=== PATIENT | male | born 1985 | race Hispanic/Latino ===

== ENCOUNTER 2018-11-16 01:21 | Emergency (ER) | payer OTHER, SELFPAY ==
[2018-11-16] MEDS ORDERED: NA CHLORIDE 0.9% 1,000 ML ONE ×2 (01:25→01:55)
[2018-11-16 01:34] LABS: Absolute Lymphocytes (CBC) 4.6 K/uL (0.7-4.9); Basophils % 0.4 % (0-1.3); Hematocrit 40.3 % (39.6-49.0); Lymphocytes % 41.4 % (15.3-44.8); MPV 8.1 fL (7.6-11.3); RBC Red Blood Cell Count 4.52 M/uL (4.33-5.43)
[2018-11-16] MEDS ORDERED: ONDANSETRON 4 MG/2 ML VIAL ONE (01:55)
[2018-11-16] MEDS ORDERED: MORPHINE 4 MG/ML SYR ONE (01:55)
[2018-11-16] MEDS ORDERED: CEFAZOLIN/SWI 1gm 1 GM/10 ML SYR ONE (01:55)
[2018-11-16] MEDS ORDERED: TETANUS & DIPHTHERIA TOX,ADULT 0.5 ML VIAL ONE (01:55)
[2018-11-16 02:08] LABS: Potassium 3.4 mmol/L (3.5-5.1)
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
[2018-11-16] MEDS ORDERED: MORPHINE 2 MG/ML SYR ONE (03:44)
[2018-11-16 04:18] VITALS: BP 139/102; O2SAT 97
--- NOTE | 2018-11-16 09:36 | RAD REPORT ---
EXAM DESCRIPTION: RAD - Humerus Right - 11/16/2018 2:31 am CLINICAL HISTORY: Right arm pain FINDINGS: Comminuted right scapular fracture is present. Fracture of the acromion is suspected. A humeral fracture is not seen
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
--- NOTE | 2018-11-16 09:44 | RAD REPORT ---
EXAM DESCRIPTION: RAD - Forearm Right - 11/16/2018 2:31 am CLINICAL HISTORY: Right arm pain FINDINGS: No fracture is is seen involving the right forearm. On the lateral view distal ulna has an oblique alignment with the distal radius. No corresponding abn ormality seen on the frontal or oblique views. This probably is secondary to positioning. A dislocati on is considered less likely. Repeat lateral view of the wrist would be helpful for re-evaluation
--- NOTE | 2018-11-16 11:43 | RAD REPORT ---
EXAM DESCRIPTION: Pedro Luis Single View11/16/2018 2:31 am CLINICAL HISTORY: Chest pain COMPARISON: none FINDINGS: The lungs appear clear of acute infiltrate. The heart is normal size Comminuted right scapular fracture. Probable fracture involves the right acromion
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
== END 2018-11-16 04:00 | disposition short-term general hospital (02) ==
LOC: ER 01:21
DX: S62.324A Displaced fracture of shaft of fourth metacarpal bone, right hand, initial encounter for closed fracture (principal); S62.326A Displaced fracture of shaft of fifth metacarpal bone, right hand, initial encounter for closed fracture; S22.039A Unspecified fracture of third thoracic vertebra, initial encounter for closed fracture; S22.049A Unspecified fracture of fourth thoracic vertebra, initial encounter for closed fracture; S22.059A Unspecified fracture of T5-T6 vertebra, initial encounter for closed fracture; S22.069A Unspecified fracture of T7-T8 vertebra, initial encounter for closed fracture; S42.109A Fracture of unspecified part of scapula, unspecified shoulder, initial encounter for closed fracture; S42.91XA Fracture of right shoulder girdle, part unspecified, initial encounter for closed fracture; S01.01XA Laceration without foreign body of scalp, initial encounter; V27.4XXA Motorcycle driver injured in collision with fixed or stationary object in traffic accident, initial encounter; Y93.89 Activity, other specified; Y92.410 Unspecified street and highway as the place of occurrence of the external cause; Z23 Encounter for immunization
CPT/HCPCS: 36415; 70450; 71045; 71260; 72125; 74177; 80048; 80320; 85025; 86850; 86900; 86901; 90471; 90714; 96361; 96365; 96375; 99291; 99292; J0690; J2270; J2405; J7030; Q9967

== ENCOUNTER 2019-08-29 20:25 | Emergency (ER) | payer BC ==
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
--- NOTE | 2019-08-29 21:56 | ER ---
Nurse's Notes [facility] Name: Blake Brooks Age: 33 yrs Sex: Male : 1985 Arrival Date: 08/29/2019 Time: 20:40 Bed 12 Private MD: Diagnosis: Exposed to STD Presentation: 08/28 20:50 Chief complaint: Patient states: "Partner" tested positive for chlamydia. Wants to be ll1 checked and treated. Denies symptoms/pain. Coronavirus screen: Patient denies a cough. Patient denies shortness of breath or difficulty breathing. Patient denies measured and/or subjective temperature greater than 100.4F prior to today's visit. Patient denies travel on a cruise ship or to a country the [facility] currently lists as an affected area. Patient denies contact with known and/or suspected case of COVID-19. Proceed with normal triage. Ebola Screen: Patient denies travel to an Ebola-affected area in the 21 days before illness onset. Initial Sepsis Screen: Does the patient meet any 2 criteria? No. Patient's initial sepsis screen is negative. Risk Assessment: Do you want to hurt yourself or someone else? Patient reports no desire to harm self or others. Onset of symptoms was August 29, 2019. 20:50 Method Of Arrival: Ambulatory ll1 20:50 Acuity: AL 4 ll1 21:26 Initial Sepsis Screen: Does the patient have a suspected source of infection? No. ll1 Patient's initial sepsis screen is negative. Historical: - Allergies: 20:49 PENICILLINS; ll1 - PMHx: 20:49 None; ll1 - Immunization history:: Flu vaccine is up to date. - Social history:: Smoking status: Patient denies any tobacco usage or history of. Patient/guardian denies using alcohol, street drugs, tobacco products. Screenin:25 Abuse screen: Denies threats or abuse. Nutritional screening: No deficits noted. ll1 Tuberculosis screening: No symptoms or risk factors identified. Fall Risk None identified. Total Cyr Fall Scale indicates No Risk (0-24 pts). Assessment: 21:24 General: Appears in no apparent distress. Behavior is calm, cooperative, appropriate ll1 for age. Pain: Denies pain. Neuro: No deficits noted. Cardiovascular: No deficits noted. Respiratory: No deficits noted. : Reports Found out partner had chlamydia today. Would like to be checked and treated. Denies dysuria, drainage, itching. 21:47 Reassessment: pt reports to that he would like to be evaluated by the STD clinic sg instead of the ER at this time, registration has been contacted for this pt to be medically screened. awaiting final decision by the patient at this time, awaiting DC. Vital Signs: 20:50 BP 161 / 94; Pulse 77; Resp 17; Temp 98.0; Pulse Ox 99% ; Pain 0/10; ll1 ED Course: 20:40 Patient arrived in ED. ag3 20:51 Triage completed. ll1 20:51 Arm band placed on Patient notified of wait time. ll1 21:24 Evon David, VIDHYA is Primary Nurse. ll1 21:26 Patient has correct armband on for positive identification. Bed in low position. Call ll1 light in reach. 21:44 Arslan Obando MD is Attending Physician. pkl 21:55 No provider procedures requiring assistance completed. Patient did not have IV access sg during this emergency room visit. Administered Medications: No medications were administered Outcome: 21:50 Medical screen evaluation completed per provider. Patient declined treatment. sg 21:50 Condition: stable 21:50 Instructed on discharge instructions, follow up and referral plans. Demonstrated understanding of instructions, follow-up care. 21:55 Discharge ordered by . pkl 21:55 Patient left the ED. sg Signatures: Nathan Pina RN RN Arslan Obando MD MD pkMontserrat Pérez [facility] Evon David RN RN ll1 Corrections: (The following items were deleted from the chart) 21:24 20:50 Chief complaint: Patient states: S.O. tested positive for chlamydia. Wants to be ll1 checked and treated. Denies symptoms/pain. ll1
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
[2019-08-29 22:05] VITALS: BP 161/94; TEMP 98; O2SAT 99
== END 2019-08-29 21:55 | disposition home or self-care (01) ==
LOC: ER 20:25
DX: Z20.2 Contact with and (suspected) exposure to infections with a predominantly sexual mode of transmission (principal); Z88.0 Allergy status to penicillin
CPT/HCPCS: 99281

== ENCOUNTER 2020-08-24 11:49 | Emergency (ER) | payer BC ==
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
[2020-08-24 12:47] LABS: Urine Blood 3+ (Negative); Urine Glucose Negative (Negative); Urine Protein 2+ (Negative); Urine Specific Gravity >=1.030 (1.005-1.030); Urine pH 5.5 (5.0-7.0)
[2020-08-24 12:49] LABS: Absolute Lymphocytes (CBC) 1.1 K/uL (0.7-4.9); Basophils % 0.2 % (0-1.3); MPV 8.4 fL (7.6-11.3); RBC Red Blood Cell Count 4.84 M/uL (4.33-5.43)
[2020-08-24 12:58] LABS: Urine Bacteria >50 /HPF (NONE SEEN); Urine Mucus LIGHT /HPF (NONE SEEN); Urine RBC >50 /HPF (NONE SEEN)
[2020-08-24 13:06] LABS: ALT/SGPT 35 U/L (12-78); AST/SGOT 31 U/L (15-37); Albumin 4.1 g/dL (3.4-5.0); Alkaline Phosphatase 85 U/L (45-117); BUN Blood Urea Nitrogen 18 mg/dL (7-18); Bicarbonate 28 mmol/L (21-32); Bilirubin Direct < 0.1 mg/dL (0-0.2); Bilirubin Total 0.4 mg/dL (0.2-1.0); Glucose Level 115 mg/dL (74-106); Lipase 82 U/L (73-393); Potassium 4.1 mmol/L (3.5-5.1); Sodium Level 142 mmol/L (136-145)
--- NOTE | 2020-08-24 13:08 | RAD REPORT ---
EXAM DESCRIPTION: CT - Stone Protocol - 08/24/2020 12:54 pm CLINICAL HISTORY: FLANK PAIN COMPARISON: No comparisons TECHNIQUE: Axial 3 mm thick images were obtained without oral or IV contrast. The cibic-cx-yarl span s the entirety of the system including uppermost abdomen and lung bases. All CT scans are performed using dose optimization technique as appropriate and may include automated exposure control or mA/KV adjustment according to patient size. FINDINGS: Mild right-sided hydronephrosis is present secondary to a 3 mm calculus at or near the rig ht UVJ. The stone may have passed into the urinary bladder which is contracted. There is potentially edema at the ureter causing persistent hydronephrosis. No suspicious renal masses. Isodense masses an d pyelonephritis are not excluded on a stone protocol CT scan. No significant adrenal finding. No uri nary bladder suspicious finding. Imaged portions of the liver, spleen and pancreas show no suspicious findings on non-contrast imaging . No gallbladder or biliary tree abnormality identified. No suspicious bowel findings. Appendix is normal. No hernia, mass or bulky lymphadenopathy noted. No free air, free fluid or inflammatory stranding. No significant bony abnormality. IMPRESSION: Mild right-sided hydronephrosis secondary to a 3 millimeter stone at or near the right U VJ. The stone may have passed into the bladder. Edema of the ureter can result in persistent hydronephros is after the stone has passed into the bladder. Isodense masses and pyelonephritis are not excluded on stone protocol technique.
[2020-08-24] MEDS ORDERED: MORPHINE 4 MG/ML SYR ONE (13:23)
[2020-08-24] MEDS ORDERED: ONDANSETRON 4 MG/2 ML VIAL ONE (13:23)
[2020-08-24] MEDS ORDERED: TAMSULOSIN 0.4 MG SR CAP ONE (13:58)
[2020-08-24] MEDS ORDERED: MAGNESIUM SULFATE 1 gm IVPB 1 GM/100 ML BAG IV ONE (13:58)
--- NOTE | 2020-08-24 14:21 | EDPHYS ---
Physician Documentation [facility] Name: Blake Brooks Age: 34 yrs Sex: Male : 1985 Arrival Date: 08/24/2020 Time: 11:54 Bed 7 Private MD: ED Physician Paolo Barr HPI: 08/24 12:25 This 34 yrs old Male presents to ER via Ambulatory with complaints of Flank cp Pain. 12:25 The patient complains of pain in the right flank. The pain radiates to the abdomen. cp Onset: The symptoms/episode began/occurred suddenly, today. Associated signs and symptoms: Pertinent positives: nausea, Pertinent negatives: diarrhea, fever, pain radiating to the lower extremities, vomiting. Severity of pain: in the emergency department the pain is unchanged despite home interventions. Historical: - Allergies: 12:03 PENICILLINS; hb - Home Meds: 12:03 None [Active]; hb - PMHx: 12:03 None; hb - PSHx: 12:03 None; hb - Immunization history:: Adult Immunizations up to date. - Social history:: Smoking status: Patient denies any tobacco usage or history of. ROS: 12:30 Constitutional: Negative for body aches, chills, fever, poor PO intake. cp 12:30 Eyes: Negative for injury, pain, redness, and discharge. cp 12:30 Cardiovascular: Negative for chest pain, palpitations. 12:30 Respiratory: Negative for cough, shortness of breath, wheezing. 12:30 Abdomen/GI: Positive for abdominal pain, nausea. 12:30 Back: Positive for flank pain, on the right. 12:30 : Negative for urinary symptoms, testicular pain 12:30 Neuro: Negative for headache, numbness, weakness. 12:30 All other systems are negative. Exam: 12:35 Constitutional: The patient appears in no acute distress, alert, awake, non-toxic, well cp developed, well nourished, uncomfortable. 12:35 Head/Face: Normocephalic, atraumatic. cp 12:35 Eyes: Periorbital structures: appear normal, Conjunctiva: normal, no exudate, no injection, Sclera: no appreciated abnormality, Lids and lashes: appear normal, bilaterally. 12:35 ENT: External ear(s): are unremarkable, Nose: is normal, Mouth: Lips: moist, Oral mucosa: moist, Posterior pharynx: Airway: no evidence of obstruction, patent. 12:35 Chest/axilla: Inspection: normal. 12:35 Cardiovascular: Rate: normal, Rhythm: regular. 12:35 Respiratory: the patient does not display signs of respiratory distress, Respirations: normal, no use of accessory muscles, Breath sounds: are clear throughout, no decreased breath sounds. 12:35 Abdomen/GI: Inspection: abdomen appears normal, Bowel sounds: active, all quadrants, Palpation: soft, in all quadrants, moderate abdominal tenderness, in the anterior aspect of right lateral abdomen and posterior aspect of right lateral abdomen. 12:35 Back: pain, that is moderate, of the right mid back, ROM is painful, with all movement. 12:35 Skin: no rash present. Vital Signs: 12:01 BP 155 / 102; Pulse 88; Resp 16; Temp 98.1; Pulse Ox 100% on R/A; Weight 74.84 kg; hb Height 5 ft. 5 in. (165.10 cm); Pain 8/10; 13:08 BP 144 / 97; Pulse 80; Resp 18; Pulse Ox 100% on R/A; Pain 8/10; ld1 14:05 BP 165 / 78; Pulse 79; Resp 17; Pulse Ox 97% on R/A; tw2 15:05 BP 128 / 82; Pulse 78; Resp 17; Pulse Ox 98% on R/A; tw2 15:37 BP 122 / 63; Pulse 76; Resp 17; Pulse Ox 95% on R/A; tw2 12:01 Body Mass Index 27.46 (74.84 kg, 165.10 cm) hb MDM: 12:18 Patient medically screened. cp 14:00 Differential diagnosis: nephrolithiasis, pyelonephritis, UTI. cp 14:20 Data reviewed: vital signs, nurses notes, lab test result(s), radiologic studies, CT cp scan. 14:20 Counseling: I had a detailed discussion with the patient and/or guardian regarding: the cp historical points, exam findings, and any diagnostic results supporting the discharge/admit diagnosis, lab results, radiology results. Response to treatment: the patient's symptoms have markedly improved after treatment, VSS. Pain markedly improved. Will discharge to home for continued monitoring. 08/24 12:19 Order name: Basic Metabolic Panel; Complete Time: 13:20 cp 08/24 14:09 Interpretation: Normal except: CL 108; GLUC 115; GFR 79. cp 08/24 12:19 Order name: CBC with Diff; Complete Time: 13:20 cp 08/24 14:09 Interpretation: Normal except: JESSICA% 80.7; LYM% 13.0. cp 08/24 12:19 Order name: Hepatic Function; Complete Time: 13:20 cp 08/24 12:19 Order name: Lipase; Complete Time: 13:20 cp 08/24 14:12 Interpretation: Reviewed. cp 08/24 12:19 Order name: Urine Microscopic Only; Complete Time: 13:20 cp 08/24 14:09 Interpretation: Normal except: URBC >50; UBACT >50. 08/24 12:47 Order name: Urine Dipstick-Ancillary; Complete Time: 13:20 EDMS 08/24 12:19 Order name: CT Stone Protocol; Complete Time: 13:20 cp 08/24 13:00 Order name: Urine Culture EDNV 08/24 12:19 Order name: IV Saline Lock; Complete Time: 13:00 cp 08/24 12:19 Order name: Labs collected and sent; Complete Time: 13:00 cp 08/24 12:19 Order name: Urine Dipstick-Ancillary (obtain specimen); Complete Time: 13:08 cp 08/24 14:19 Order name: PO challenge; Complete Time: 15:37 cp Administered Medications: 13:06 Drug: Zofran (Ondansetron) 4 mg Route: IVP; Site: right antecubital; ld1 13:50 Follow up: Response: No adverse reaction tw2 13:08 Drug: morphine 4 mg Route: IVP; Site: right antecubital; ld1 13:49 Follow up: Response: No adverse reaction; Pain is unchanged, physician notified; RASS: tw2 Alert and Calm (0) 13:49 Drug: Flomax (tamsulosin) 0.4 mg Route: PO; tw2 14:09 Follow up: Response: No adverse reaction tw2 13:49 Drug: Magnesium Sulfate 1 grams Route: IVPB; Infused Over: 20 mins; Site: right tw2 antecubital; 14:22 Follow up: Response: No adverse reaction; IV Status: Completed infusion; IV Intake: tw2 100ml 14:12 Drug: Dilaudid (HYDROmorphone) 1 mg {Note: rass 0.} Route: IVP; Site: right antecubital;tw2 15:12 Follow up: Response: No adverse reaction; Pain is decreased; RASS: Alert and Calm (0) tw2 14:28 Drug: NS 0.9% 1000 ml Route: IV; Rate: 1 bolus; Site: right antecubital; tw2 15:37 Follow up: Response: No adverse reaction; IV Status: Completed infusion; IV Intake: tw2 1000ml 14:28 Drug: Cipro (ciprofloxacin) 500 mg Route: PO; tw2 15:12 Follow up: Response: No adverse reaction tw2 Disposition Summary: 08/24/20 14:20 Discharge Ordered Location: Home cp Problem: new cp Symptoms: have improved cp Condition: Stable cp Diagnosis - Calculus of ureter - right cp Followup: cp - With: Venkat Otoole MD - When: 2 - 3 days - Reason: Worsening of condition Discharge Instructions: - Kidney Stones cp - Renal Colic cp - Discharge Summary Sheet tw2 Forms: - Work release form tw2 - Medication Reconciliation Form cp - Thank You Letter cp - Antibiotic Education cp - Prescription Opioid Use cp Prescriptions: - Flomax 0.4 mg Oral capsule - take 1 capsule by ORAL route once daily As needed 1/2 hour following the same cp meal each day; 5 capsule; Refills: 0, Product Selection Permitted - Zofran 4 mg Oral Tablet - take 1 tablet by ORAL route every 12 hours As needed; 20 tablet; Refills: 0, cp Product Selection Permitted - Cipro 500 mg Oral Tablet - take 1 tablet by ORAL route every 12 hours for 7 days; 14 tablet; Refills: 0, cp Product Selection Permitted - Tramadol 50 mg Oral Tablet - take 1 tablet by ORAL route every 8 hours as needed; 15 tablet; Refills: 0, cp Product Selection Permitted Addendum: 08/28/2020 07:04 Co-signature as Attending Physician, Paolo Barr MD. r n Signatures: Dispatcher [employer] Paolo Saucedo MD MD rn Page, Corey, PA PA cp Aileen Hills RN RN Marly Malhotra RN RN tw2 Virgen Lake RN RN ld1
--- NOTE | 2020-08-24 14:21 | ER ---
Nurse's Notes [facility] Name: Blake Brooks Age: 34 yrs Sex: Male : 1985 Arrival Date: 08/24/2020 Time: 11:54 Bed 7 Private MD: Diagnosis: Calculus of ureter-right Presentation: 08/24 12:01 Chief complaint: Right flank pain that radiates to right groin and difficulty urinating hb x 1 hr. Coronavirus screen: At this time, the client does not indicate any symptoms associated with coronavirus-19. Ebola Screen: No symptoms or risks identified at this time. Initial Sepsis Screen: Does the patient meet any 2 criteria? No. Patient's initial sepsis screen is negative. Does the patient have a suspected source of infection? No. Patient's initial sepsis screen is negative. Risk Assessment: Do you want to hurt yourself or someone else? Patient reports no desire to harm self or others. Onset of symptoms was August 24, 2020. 12:01 Method Of Arrival: Ambulatory hb 12:01 Acuity: AL 3 hb Historical: - Allergies: 12:03 PENICILLINS; hb - Home Meds: 12:03 None [Active]; hb - PMHx: 12:03 None; hb - PSHx: 12:03 None; hb - Immunization history:: Adult Immunizations up to date. - Social history:: Smoking status: Patient denies any tobacco usage or history of. Screenin:08 Abuse screen: Denies threats or abuse. Denies injuries from another. Nutritional ld1 screening: No deficits noted. Tuberculosis screening: No symptoms or risk factors identified. Fall Risk None identified. Assessment: 13:08 General: Appears in no apparent distress. uncomfortable, Behavior is cooperative, ld1 appropriate for age, drowsy. Pain: Complains of pain in right mid back, right low back, left upper quadrant and left lower quadrant Pain does not radiate. Pain currently is 9 out of 10 on a pain scale. Quality of pain is described as burning, throbbing, Pain began 1 day ago. Is continuous. Neuro: Level of Consciousness is awake, alert, obeys commands, Oriented to person, place, time, situation. Cardiovascular: Capillary refill < 3 seconds Patient's skin is warm and dry. Respiratory: Airway is patent Respiratory effort is even, unlabored, Respiratory pattern is regular, symmetrical. GI: Abdomen is flat, non-distended. : Reports pain in right in suprapubic area upper quadrant(s) lower quadrant(s). EENT: No signs and/or symptoms were reported regarding the EENT system. Derm: No signs and/or symptoms reported regarding the dermatologic system. Musculoskeletal: No signs and/or symptoms reported regarding the musculoskeletal system. 14:06 Reassessment: No changes from previously documented assessment. Patient and/or family tw2 updated on plan of care and expected duration. Pain level reassessed. Patient is alert, oriented x 3, equal unlabored respirations, skin warm/dry/pink. Patient states symptoms have not improved. 15:12 Reassessment: Patient appears in no apparent distress at this time. Patient and/or tw2 family updated on plan of care and expected duration. Pain level reassessed. Patient is alert, oriented x 3, equal unlabored respirations, skin warm/dry/pink. Patient states feeling better. Patient states symptoms have improved. 15:38 Reassessment: Patient appears in no apparent distress at this time. No changes from tw2 previously documented assessment. Patient and/or family updated on plan of care and expected duration. Pain level reassessed. Patient is alert, oriented x 3, equal unlabored respirations, skin warm/dry/pink. Vital Signs: 12:01 BP 155 / 102; Pulse 88; Resp 16; Temp 98.1; Pulse Ox 100% on R/A; Weight 74.84 kg; hb Height 5 ft. 5 in. (165.10 cm); Pain 8/10; 13:08 BP 144 / 97; Pulse 80; Resp 18; Pulse Ox 100% on R/A; Pain 8/10; ld1 14:05 BP 165 / 78; Pulse 79; Resp 17; Pulse Ox 97% on R/A; tw2 15:05 BP 128 / 82; Pulse 78; Resp 17; Pulse Ox 98% on R/A; tw2 15:37 BP 122 / 63; Pulse 76; Resp 17; Pulse Ox 95% on R/A; tw2 12:01 Body Mass Index 27.46 (74.84 kg, 165.10 cm) ED Course: 11:54 Patient arrived in ED. mr 12:02 Triage completed. hb 12:03 Arm band placed on. hb 12:06 Page, Norberto, PA is PHCP. cp 12:06 Paolo Barr MD is Attending Physician. cp 12:40 Inserted saline lock: 20 gauge in right antecubital area, using aseptic technique. kj1 Blood collected. 12:40 Urine collected: clean catch specimen, blood tinged. kj1 12:54 CT Stone Protocol In Process Unspecified. EDMS 13:08 Patient has correct armband on for positive identification. Bed in low position. Call ld1 light in reach. Side rails up X2. Pulse ox on. NIBP on. 13:08 Urine Culture Sent. ld1 13:08 No provider procedures requiring assistance completed. ld1 13:27 Marly Malhotra, VIDHYA is Primary Nurse. tw2 14:19 Venkat Otoole MD is Referral Physician. cp 14:20 Awaiting: completion of IV fluids PRIOR to discharge. tw2 15:48 IV discontinued, intact, bleeding controlled, No redness/swelling at site. Pressure tw2 dressing applied. Administered Medications: 13:06 Drug: Zofran (Ondansetron) 4 mg Route: IVP; Site: right antecubital; ld1 13:50 Follow up: Response: No adverse reaction tw2 13:08 Drug: morphine 4 mg Route: IVP; Site: right antecubital; ld1 13:49 Follow up: Response: No adverse reaction; Pain is unchanged, physician notified; RASS: tw2 Alert and Calm (0) 13:49 Drug: Flomax (tamsulosin) 0.4 mg Route: PO; tw2 14:09 Follow up: Response: No adverse reaction tw2 13:49 Drug: Magnesium Sulfate 1 grams Route: IVPB; Infused Over: 20 mins; Site: right tw2 antecubital; 14:22 Follow up: Response: No adverse reaction; IV Status: Completed infusion; IV Intake: tw2 100ml 14:12 Drug: Dilaudid (HYDROmorphone) 1 mg {Note: rass 0.} Route: IVP; Site: right antecubital;tw2 15:12 Follow up: Response: No adverse reaction; Pain is decreased; RASS: Alert and Calm (0) tw2 14:28 Drug: NS 0.9% 1000 ml Route: IV; Rate: 1 bolus; Site: right antecubital; tw2 15:37 Follow up: Response: No adverse reaction; IV Status: Completed infusion; IV Intake: tw2 1000ml 14:28 Drug: Cipro (ciprofloxacin) 500 mg Route: PO; tw2 15:12 Follow up: Response: No adverse reaction tw2 Intake: 14:22 IV: 100ml; Total: 100ml. tw2 15:37 IV: 1000ml; Total: 1100ml. tw2 Outcome: 14:20 Discharge ordered by . cristino 15:47 Discharged to home ambulatory. tw2 15:47 Condition: stable 15:47 Discharge instructions given to patient, Instructed on discharge instructions, follow up and referral plans. no drinking with medication, no driving heavy equipment, medication usage, Demonstrated understanding of instructions, follow-up care, medications, Prescriptions given X 4. 15:48 Patient left the ED. tw2 Signatures: Dispatcher [employer] Reva Perdue Norberto Lopez PA PA cp Baxter, Heather, VIDHYA KEE Marly Malhotra RN RN tw2 Lacey De La Torre1 Virgen Lake RN RN ld1 Corrections: (The following items were deleted from the chart) 14:29 14:20 Awaiting: completion of IV abx \T\ fluids PRIOR to discharge tw2 tw2
[2020-08-24] MEDS ORDERED: HYDROMORPHONE HCL 1 MG/ML INJ ONE (14:29)
[2020-08-24] MEDS ORDERED: CIPROFLOXACIN HCL 500 MG TAB ONE (14:44)
[2020-08-24] MEDS ORDERED: NA CHLORIDE 0.9% 1,000 ML ONE (14:45)
[2020-08-24 15:56] VITALS: TEMP 98.1
[2020-08-24 16:01] VITALS: BP 122/63; O2SAT 95
== END 2020-08-24 15:48 | disposition home or self-care (01) ==
LOC: ER 11:49
DX: N20.1 Calculus of ureter (principal); Z88.0 Allergy status to penicillin
CPT/HCPCS: 96365; 96361; 87088; 85025; 87086; 80048; 36415; 80076; 83690; 76377; 74176; 96375; 99284; J3475; J1170; J7030; J2405; 81003; 81015

== ENCOUNTER 2023-01-22 21:53 | Emergency (ER) | payer SELFPAY ==
[2023-01-22] MEDS ORDERED: KETOROLAC 30 MG/ML INJ ONE (23:33)
[2023-01-22] MEDS ORDERED: CYCLOBENZAPRINE 10 MG TAB ONE (23:33)
--- NOTE | 2023-01-23 00:48 | EDPHYS ---
Physician Documentation [facility] Name: Blake Brooks Age: 37 yrs Sex: Male : 1985 Arrival Date: 01/22/2023 Time: 21:53 Bed DX3 Private MD: ED Physician Baldo Delatorre HPI: 01/22 23:00 This 37 yrs old Male presents to ER via Ambulatory with complaints of Neck cp Pain, >24Hrs Old. 23:00 The patient or guardian complains of pain, that is acute. The symptoms are located on cp the left lateral neck. Onset: The symptoms/episode began/occurred 1 week(s) ago. Context: The neck injury/problem resulted from from unknown cause. Associated signs and symptoms: Pertinent negatives: fever, headache, numbness, tingling, weakness. The pain does not radiate. 23:00 Patient reports pain to left side of neck from behind left ear to top of left shoulder. cp Pain since last week. Denies recent injury but reports injuring neck in the past. Pain worse with movement. Historical: - Allergies: 22:03 PENICILLINS; cm10 - Home Meds: 22:03 None [Active]; cm10 - PMHx: 22:03 None; cm10 - PSHx: 22:03 None; cm10 - Immunization history:: Adult Immunizations not up to date. - Social history:: Smoking status: Patient denies any tobacco usage or history of. ROS: 23:05 Constitutional: Negative for body aches, chills, fever, poor PO intake, cp 23:05 Neck: Positive for pain with movement, pain at rest, of the left lateral neck, Negative for injury or acute deformity, rash, swelling, bony tenderness, 23:05 Eyes: Negative for injury, pain, redness, and discharge, cp 23:05 ENT: Negative for drainage from ear(s), ear pain, sore throat, difficulty swallowing, difficulty handling secretions, hoarseness, 23:05 Cardiovascular: Negative for chest pain, edema, palpitations, 23:05 Respiratory: Negative for cough, shortness of breath, wheezing, 23:05 Abdomen/GI: Negative for abdominal pain, nausea, vomiting, and diarrhea, 23:05 Back: Negative for pain at rest, pain with movement, 23:05 Skin: Negative for rash, 23:05 Neuro: Negative for altered mental status, dizziness, headache, numbness, weakness, 23:05 All other systems are negative, Exam: 23:10 Constitutional: The patient appears in no acute distress, alert, awake, non-toxic, well cp developed, well nourished, 23:10 Head/Face: Normocephalic, atraumatic. cp 23:10 Eyes: Periorbital structures: appear normal, Conjunctiva: normal, no exudate, no injection, Sclera: no appreciated abnormality, Lids and lashes: appear normal, bilaterally, 23:10 ENT: External ear(s): are unremarkable, Ear canal(s): are normal, clear, TM's: dullness, bilaterally, Nose: is normal, Mouth: Lips: moist, Oral mucosa: pink and intact, moist, Posterior pharynx: is normal, airway is patent, no erythema, no exudate, 23:10 Neck: External neck: tenderness to left lateral neck along left trapezius muscle, no spasms palpated, increase in pain when head turned to left, C-spine: vertebral tenderness, is not appreciated, crepitus, is not appreciated, ROM/movement: limited range of motion, is not appreciated, Meningeal signs: are not present, nuchal rigidity, is not appreciated, 23:10 Chest/axilla: Inspection: normal, Palpation: is normal, no crepitus, no tenderness, 23:10 Cardiovascular: Rate: normal, Rhythm: regular, 23:10 Respiratory: the patient does not display signs of respiratory distress, Respirations: normal, no use of accessory muscles, no retractions, labored breathing, is not present, Breath sounds: are clear throughout, no decreased breath sounds, no stridor, no wheezing, 23:10 Abdomen/GI: Exam negative for discomfort, distension, guarding, Inspection: abdomen appears normal, 23:10 Skin: cellulitis, is not appreciated, no rash present. Vital Signs: 22:02 BP 144 / 92; Pulse 83; Resp 16; Temp 97.3; Pulse Ox 99% on R/A; Weight 83.91 kg; Height cm10 5 ft. 5 in. ; Pain 6/10; 22:02 Body Mass Index 30.79 (83.91 kg, 165.1 cm) cm10 22:02 Pain Scale: Adult cm10 MDM: 22:23 Patient medically screened. cp 01/23 00:47 Data reviewed: vital signs, nurses notes, radiologic studies, plain films. cp 00:47 Differential diagnosis: C-Spine Fracture Cervical Raiculopathy cervical strain, cp Degenerative Disc Disease Spondylolisthesis torticollis. I considered the following discharge prescriptions or medication management in the emergency department Medications were administered in the Emergency Department. See MAR. Independent interpretation of the following test(s) in the Emergency Department X-Ray: My interpretation is images of c-spine negative for fracture. Counseling: I had a detailed discussion with the patient and/or guardian regarding the historical points, exam findings, and any diagnostic results supporting the discharge/admit diagnosis, radiology results, to return to the emergency department if symptoms worsen or persist or if there are any questions or concerns that arise at home. Response to treatment: the patient's symptoms have markedly improved after treatment, and as a result, I will discharge patient. 01/22 23:11 Order name: XRAY C Spine Ap/lat cp Administered Medications: 01/22 23:23 Drug: Ketorolac IM 30 mg IM once Route: IM; Site: left deltoid; jb4 23:23 Drug: Cyclobenzaprine PO 10 mg PO once Route: PO; jb4 Disposition: 01/23 20:10 Co-signature as Attending Physician, Baldo Delatorre MD I agree with the assessment sp4 and plan of care. I reviewed the patient's care provided by the Advanced Practice Provider and agree with the diagnosis and treatment plan. Disposition Summary: 01/23/23 00:48 Discharge Ordered Notes: Location: Home cp Problem: new cp Symptoms: have improved cp Condition: Stable cp Diagnosis - Cervicalgia cp Followup: cp - With: Private Physician - When: 1 week - Reason: Recheck today's complaints Discharge Instructions: - Discharge Summary Sheet cp - Musculoskeletal Pain cp - Heat Therapy cp - Neck Exercises cp Forms: - Medication Reconciliation Form cp - Thank You Letter cp - Antibiotic Education cp - Prescription Opioid Use cp - Patient Portal Instructions cp - Leadership Thank You Letter cp Prescriptions: - Cyclobenzaprine 10 mg Oral Tablet - take 1 tablet ORAL route every 8 hours As needed; 30 tablet; Refills: 0, cp Product Selection Permitted - Diclofenac Sodium 75 mg Oral Tablet Sustained Release - take 1 tablet ORAL route 2 times per day; 30 tablet; Refills: 0, Product cp Selection Permitted Signatures: Dispatcher [employer] EDMS Norberto Lopez PA PA cp Luis Farris, RN RN jb4 Baldo Delatorre MD MD sp4 Alissa Burris RN RN cm10 Corrections: (The following items were deleted from the chart) 01/22 22:04 22:03 PMHx: Unable to Obtain; cm10 cm10 01/23 18:31 18:29 Neck: Positive for pain with movement, pain at rest, of the left lateral neck, cp Negative for injury or acute deformity, rash, swelling, bony tenderness, cp 18:31 18:29 Constitutional: Negative for body aches, chills, fever, poor PO intake, cp cp 18:39 01/22 23:00 Patient reports pain to left side of neck from behind left ear to top of cp left shoulder. Pain since last week. Denies injury. Pain worse with movement. cp
--- NOTE | 2023-01-23 00:48 | ER ---
[facility]urse's Notes [facility] Name: Blake Brooks Age: 37 yrs Sex: Male : 1985 Arrival Date: 01/22/2023 Time: 21:53 Bed DX3 Private MD: Diagnosis: Cervicalgia Presentation: 01/22 22:02 Chief complaint: Patient states: Left sided neck pain onset last week. Pt states that cm10 movement makes the pain worse. Coronavirus screen: Vaccine status: Patient reports being unvaccinated. Client denies travel out of the [place] in the last 14 days. Ebola Screen: Patient denies travel to an Ebola-affected area in the 21 days before illness onset. No symptoms or risks identified at this time. Initial Sepsis Screen: Does the patient meet any 2 criteria? No. Patient's initial sepsis screen is negative. Does the patient have a suspected source of infection? No. Patient's initial sepsis screen is negative. Risk Assessment: Do you want to hurt yourself or someone else? Patient reports no desire to harm self or others. Onset of symptoms was January 22, 2023. 22:02 Method Of Arrival: Ambulatory cm10 22:02 Acuity: AL 4 cm10 Historical: - Allergies: 22:03 PENICILLINS; cm10 - Home Meds: 22:03 None [Active]; cm10 - PMHx: 22:03 None; cm10 - PSHx: 22:03 None; cm10 - Immunization history:: Adult Immunizations not up to date. - Social history:: Smoking status: Patient denies any tobacco usage or history of. Screenin/12 00:30 [facility] ED Fall Risk Assessment (Adult) History of falling in the last 3 months, jb4 including since admission No falls in past 3 months (0 pts) Confusion or Disorientation No (0 pts) Score/Fall Risk Level 0 - 2 = Low Risk Oriented to surroundings, Maintained a safe environment. Abuse screen: Denies threats or abuse. Nutritional screening: No deficits noted. Tuberculosis screening: No symptoms or risk factors identified. Assessment: 01/22 22:45 General: Appears in no apparent distress. uncomfortable, Behavior is calm, cooperative, jb4 appropriate for age. Pain: Complains of pain in neck Pain does not radiate. Pain currently is 6 out of 10 on a pain scale. Neuro: Level of Consciousness is awake, alert, obeys commands, Oriented to person, place, time, situation. Cardiovascular: Patient's skin is warm and dry. Respiratory: Airway is patent Respiratory effort is even, unlabored, Respiratory pattern is regular, symmetrical. GI: No signs and/or symptoms were reported involving the gastrointestinal system. : No signs and/or symptoms were reported regarding the genitourinary system. EENT: No signs and/or symptoms were reported regarding the EENT system. Derm: Skin is intact, Skin is pink, warm \T\ dry. 01/23 00:30 Reassessment: Patient appears in no apparent distress at this time. Patient and/or jb4 family updated on plan of care and expected duration. Pain level reassessed. Patient is alert, oriented x 3, equal unlabored respirations, skin warm/dry/pink. Patient states feeling better. Patient states symptoms have improved. 01:02 Reassessment: Patient appears in no apparent distress at this time. Patient and/or jb4 family updated on plan of care and expected duration. Pain level reassessed. Patient is alert, oriented x 3, equal unlabored respirations, skin warm/dry/pink. Vital Signs: 01/22 22:02 BP 144 / 92; Pulse 83; Resp 16; Temp 97.3; Pulse Ox 99% on R/A; Weight 83.91 kg; Height cm10 5 ft. 5 in. ; Pain 6/10; 22:02 Body Mass Index 30.79 (83.91 kg, 165.1 cm) cm10 22:02 Pain Scale: Adult cm10 ED Course: 21:54 Patient arrived in ED. jj6 22:03 Triage completed. cm10 22:04 Arm band placed on Patient placed in an exam room, on a stretcher. cm10 22:23 Norberto Lopez PA is PHCP. cp 22:23 Baldo Delatorre MD is Attending Physician. cp 01/23 00:04 XRAY C Spine Ap/lat In Process Unspecified. EDMS 00:29 Luis Farris, VIDHYA is Primary Nurse. jb4 00:30 Patient has correct armband on for positive identification. Bed in low position. Call jb4 light in reach. Side rails up X 1. Client placed on continuous cardiac and pulse oximetry monitoring. NIBP monitoring applied. 01:02 No provider procedures requiring assistance completed. Patient did not have IV access jb4 during this emergency room visit. Administered Medications: 01/22 23:23 Drug: Ketorolac IM 30 mg IM once Route: IM; Site: left deltoid; jb4 23:23 Drug: Cyclobenzaprine PO 10 mg PO once Route: PO; jb4 Medication: 01/23 00:30 VIS not applicable for this client. jb4 Outcome: 00:48 Discharge ordered by . cristino 01:02 Discharged to home ambulatory, with family, jb4 01:02 Condition: stable 01:02 Discharge instructions given to patient, Instructed on discharge instructions, follow up and referral plans. no drinking with medication, no driving heavy equipment, medication usage, Demonstrated understanding of instructions, follow-up care, medications, Prescriptions given X 2, 01:03 Patient left the ED. jb4 Signatures: Dispatcher [employer] EDMS Norberto Lopez PA PA cp Bryson, James, RN RN jb4 Venecia Richardj6 Alissa Burris RN RN cm10 Corrections: (The following items were deleted from the chart) 01/22 22:04 22:03 PMHx: Unable to Obtain; cm10 cm10
[2023-01-23 01:13] VITALS: BP 144/92; TEMP 97.3; O2SAT 99
--- NOTE | 2023-01-23 21:16 | RAD REPORT ---
EXAM DESCRIPTION: XR Cervical Spine, 2 or 3 Views CLINICAL HISTORY: The patient is 37 years old and is Male; PAIN TECHNIQUE: Frontal and lateral views of the cervical spine. COMPARISON: No relevant prior studies available. FINDINGS: VERTEBRAE: Unremarkable. No definite fracture. Normal alignment. DISC SPACES: No acute findings. No significant narrowing. SOFT TISSUES: Unremarkable. IMPRESSION: Normal cervical spine radiographs. Electronically signed by: Luba Cintron MD 01/23/2023 12:40 AM [employer] Due to temporary technical issues with the PACS/Fluency reporting system, reports are being signed by the in house radiologists without review as a courtesy to insure prompt reporting. The interpreting radiologist is fully responsible for the content of the report.
== END 2023-01-23 01:03 | disposition home or self-care (01) ==
LOC: ER 21:53
DX: M54.2 Cervicalgia (principal)
CPT/HCPCS: 72040; 96372; 99284